=== PATIENT | female | born 1975 | race Caucasian/White ===

== ENCOUNTER 2019-04-06 22:59 | Emergency (ER) | payer BC ==
[~2019-04-06] VITALS: Ht 154.9 cm; Wt 44.0 kg
[2019-04-06 23:04] VITALS: BP 114/85
[2019-04-06] MEDS ORDERED: NF (23:16)
== END 2019-04-07 01:00 | disposition home or self-care (01) ==
LOC: ER 22:59
DX: S86.812A Strain of other muscle(s) and tendon(s) at lower leg level, left leg, initial encounter (principal); E03.9 Hypothyroidism, unspecified; X58.XXXA Exposure to other specified factors, initial encounter; Y92.89 Other specified places as the place of occurrence of the external cause; Y93.89 Activity, other specified; Y99.8 Other external cause status

== ENCOUNTER 2020-09-13 10:54 | Emergency (ER) | payer OTHER ==
[~2020-09-13] VITALS: Ht 162.6 cm; Wt 45.4 kg
[~2020-09-13 10:54] MED LIST: NF
[2020-09-13] MEDS ORDERED: SYNTHROID100 MC1 PO (11:03)
[2020-09-13 11:18] LABS: URINE BILIRUBIN NEGATIVE (Negative); URINE BLOOD NEGATIVE (Negative); URINE CLARITY CLEAR; URINE COLOR YELLOW; URINE GLUCOSE-RANDOM* NEGATIVE (Negative); URINE KETONES NEGATIVE (Negative); URINE LEUKOCYTES-REFLEX NEGATIVE (Negative); URINE NITRITE-REFLEX NEGATIVE (Negative); URINE PROTEIN (DIPSTICK) NEGATIVE (Negative); URINE SPECIFIC GRAVITY <= 1.005 (1.005-1.035); URINE UROBILINOGEN 0.2 E.U./dl (0.2-1.0)
[2020-09-13 11:27] LABS: ABSOLUTE NEUTROPHILS 3.1 thou/uL (1.4-8.2); BASOPHILS 0.6 % (0.0-2.0); EOSINOPHILS 2.2 % (0.0-3.0); HEMATOCRIT 35.3 % (37.0-47.0); HEMOGLOBIN 11.4 gm/dL (12.0-15.0); MCH 25.5 pg (26.0-34.0); MCHC 32.3 g/dL (28.0-37.0); MCV 79.1 fL (80.0-100.0); MONOCYTES 11.4 % (1.0-8.0); PLATELET COUNT 387 thou/uL (150-400); POLYS 61.8 % (36.0-66.0); RBC 4.46 mil/uL (4.20-5.00); RDW 15.8 % (10.5-14.5); WBC 5.1 thou/uL (4.0-11.0)
[2020-09-13 11:39] LABS: ANION GAP 10 mmol/L (7-16); BUN 24 mg/dL (7-18); CALCIUM 8.9 mg/dL (8.5-10.1); CHLORIDE 101 mmol/L (98-107); CO2 27 mmol/L (21-32); CREATININE 1.4 mg/dL (0.6-1.0); GLUCOSE 86 mg/dL (74-106); POTASSIUM 3.6 mmol/L (3.5-5.1); SODIUM 138 mmol/L (136-145)
[2020-09-13 11:45] LABS: ALBUMIN 3.3 g/dL (3.4-5.0); DIRECT BILIRUBIN < 0.1 mg/dL (<0.1-0.2); LIPASE 247 U/L (73-393); SGOT 16 U/L (15-37); SGPT 13 U/L (14-59); TOTAL BILIRUBIN 0.3 mg/dL (0.2-1.0); TOTAL PROTEIN 9.1 g/dL (6.4-8.2)
[2020-09-13] MEDS ORDERED: LEVOFLOXACIN750 MG PO (13:44)
[2020-09-13 13:46] VITALS: BP 117/81
== END 2020-09-13 13:48 | disposition home or self-care (01) ==
LOC: ER 10:54
PROVIDERS: Nurse Practitioner
DX: R10.13 Epigastric pain (principal); R10.11 Right upper quadrant pain; R10.12 Left upper quadrant pain; J18.9 Pneumonia, unspecified organism; E03.9 Hypothyroidism, unspecified; Z79.899 Other long term (current) drug therapy